=== PATIENT | female | born 1970 | race Caucasian/White ===

== ENCOUNTER → 2016-11-19 | Outpatient (CLI) | payer MEDICAID ==
[~2016-11-19] MED LIST: AMOXICILLIN 50500 MG PO; CIPRO 500MG TA500 MG PO; PROMETHAZINE D473 ML PO; PYRIDIUM100 M1 PO
--- NOTE | 2016-11-27 11:25 | RADIOLOGY REPORT PS360 ---
DIG MAMM-DX UNI A/VWS-LT W/CAD LEFT BREAST ULTRASOUND COMPARISON: 05/15/2016 INDICATION: Follow-up abnormal mammogram ORDERING PHYSICIAN: Selam Yost PATIENT AGE: 46 years TECHNIQUE: Standard images obtained with focal spot compression views FINDINGS: Average fibroglandular tissue. No malignant appearing mass or malignant appearing microcalcification is evident. The benign-appearing nodule previously described is once again noted in the lateral left breast measuring approximately 4 mm. Left breast ultrasound: A 4 mm cyst is noted at 2:00 likely corresponding to the mammographic abnormality. No suspicious nodules are evident. 3 mm cystic area present behind the nipple. IMPRESSION: Benign findings, no change with no evidence of malignancy. BI-RADS CATEGORY: 2_Benign RECOMMENDED FOLLOWUP: Screening mammogram April 2017 (A letter has been sent to the patient regarding results of the study.)
== END ==
LOC: RAD 13:27
DX: R92.8 Other abnormal and inconclusive findings on diagnostic imaging of breast (principal)
CPT/HCPCS: G0206-LT

== ENCOUNTER → 2017-05-01 | Day surgery (SDC) | payer MEDICAID ==
[~2017-05-01] VITALS: Ht 160 cm; Wt 63.5 kg
[~2017-05-01] MED LIST changes: +CYCLOBENZAPRINE10 M1 PO; +DIAZEPAM5 M1 PO; +GABAPENTIN300 M1 PO; +OMEPRAZOLE40 MG PO; +TRAMADOL 50MG T50 MG PO; +ZOFRAN4 MG PO
--- NOTE | 2017-05-01 12:58 | Operative Note ---
Surgeon/Diagnoses Surgeon/Call Or Contact Centre Operator(s) Date of procedure: 05/01/17 Surgeon: MD Wade Hernandez Diagnoses Pre-op diagnosis: Gastroesophageal reflux Bright red blood per rectum History of hyperplastic colon polyps Post-op diagnosis Same as preoperative diagnoses, with the additional following: Gastritis Duodenitis Sliding hiatal hernia Hemorrhoid cushions with no active bleeding or thrombosis Colon polyps (likely hyperplastic) Procedure Procedure Procedure: Esophagogastroduodenoscopy with biopsy Colonoscopy with biopsy (polypectomy by means other than snare) Indications: ESTER CAIN is a 46 year-old Female with a history of gastroesophageal reflux disease, intermittent bright red blood per rectum, and a history of hyperplastic polyps of the sigmoid colon. Findings: Gastroesophageal junction at 35 cm Sliding hiatal hernia Mild gastritis Moderate duodenitis Bowel preparation moderate to poor Hemorrhoidal cushions with no thrombosis or active bleeding 3 adjacent polyps at 25 cm (likely hyperplastic) A few small scattered hyperplastic-appearing polyps within the sigmoid colon and rectum. Procedure Description: After informed consent was obtained, the patient was taken to the endoscopy suite. Monitored anesthesia care ensued after she was transferred to the LEFT lateral decubitus position. The gastroscope was advanced. The gastroesophageal junction was at 35 cm. The stomach was entered. Mild patchy gastritis noted. Retroflexion revealed a sliding hiatal hernia. A biopsy of the antrum was obtained. A biopsy of the gastroesophageal junction was also obtained at the time of gastroscope removal as a small area of inflammation was noted at this site. The pylorus was intubated. Moderate patchy duodenitis noted and biopsies the duodenal bulb were obtained. The gastroscope was carefully removed. Digital rectal exam revealed hemorrhoidal cushions. The colonoscope was placed in position. The entire colon was evaluated. Bowel preparation was moderate to poor with irrigation and suctioning used to improve visualization. 3 adjacent polyps at 25 cm were excised with cold biopsy forceps. These polyps were felt to most likely be hyperplastic. A few other scattered hyperplastic-appearing polyps within the rectum and sigmoid colon were noted. Hemorrhoidal cushions were confirmed. No thrombosis or bleeding was seen. The colonoscope was carefully removed and the patient was transferred to recovery. EBL (ml): 1 Anesthesia: Monitored anesthesia care Complications: No immediate Specimens: Antral biopsy Biopsy of duodenal bulb Biopsy of gastroesophageal junction 3 adjacent colon polyps at 25 cm Disposition Disposition: Stable to recovery from where she will be discharged home. She will follow-up in one week. Repeat colonoscopy is pending pathology but will likely be around 3 years secondary to moderate to poor bowel preparation. at [id number]
--- NOTE | 2017-05-01 13:20 | Anesthesia Record ---
Anesthesia Record Part I Total IV fluids: 700 EBL (ml): 0 Urine Output: 0 B/P: 81/46 % SaO2: 98 Pulse: 93 Resps: 16 Temp: 97.6 Patient is: Drowsy, Stable Stable to PACU at: 1247 at 1320
--- NOTE | 2017-05-01 13:21 | Anesthesia Record ---
Anesthesia Record Part II Discharge time: 1247 Destination: Same day surgery PACU nurse assessment review? Yes Patient is: Stable Anesthesia complications? No at 1328
[2017-05-01 15:45] VITALS: BP 96/68
== END ==
LOC: SDC 10:09
PROVIDERS: Surgery
PROC: 0DBN8ZX Excision of Sigmoid Colon, Via Natural or Artificial Opening Endoscopic, Diagnostic (ICD-10-PCS; 2017-05-01)
PROC: 0DB98ZX Excision of Duodenum, Via Natural or Artificial Opening Endoscopic, Diagnostic (ICD-10-PCS; 2017-05-01)
PROC: 0DB78ZX Excision of Stomach, Pylorus, Via Natural or Artificial Opening Endoscopic, Diagnostic (ICD-10-PCS; 2017-05-01)
PROC: 0DB48ZX Excision of Esophagogastric Junction, Via Natural or Artificial Opening Endoscopic, Diagnostic (ICD-10-PCS; 2017-05-01)
PROC: 0DBP8ZX Excision of Rectum, Via Natural or Artificial Opening Endoscopic, Diagnostic (ICD-10-PCS; principal; 2017-05-01 10:30)
DX: Z09 Encounter for follow-up examination after completed treatment for conditions other than malignant neoplasm (principal); Z86.010 Personal history of colon polyps; K62.5 Hemorrhage of anus and rectum; K64.9 Unspecified hemorrhoids; K63.5 Polyp of colon; K21.9 Gastro-esophageal reflux disease without esophagitis; K44.9 Diaphragmatic hernia without obstruction or gangrene; K29.70 Gastritis, unspecified, without bleeding; K29.80 Duodenitis without bleeding

== ENCOUNTER → 2017-07-22 | Outpatient (CLI) | payer MEDICAID | LOC: LAB 15:33 | DX: N39.0 Urinary tract infection, site not specified (principal); R31.9 Hematuria, unspecified; M25.50 Pain in unspecified joint; F41.9 Anxiety disorder, unspecified ==